=== PATIENT | female | born 2000 | race Caucasian/White ===

== ENCOUNTER 2021-03-04 20:25 | Emergency (ER) | payer OTHER ==
[2021-03-04 20:40] VITALS: TEMP 98.9; BMI 23.1
[2021-03-04] MEDS ORDERED: MECLIZINE HCL 25 MG TABLET (FP) PO ONE (22:32)
[2021-03-04] MEDS ORDERED: ONDANSETRON 4 MG/2 ML VIAL IVPUSH ONE (22:32)
[2021-03-04] MEDS ORDERED: SODIUM CHLORIDE 0.9% 500 ML INFUS.BAG IV ONE (22:32)
[2021-03-04] MEDS ORDERED: MECLIZINE HCL 25 MG TABLET (FP) ONE (22:37)
[2021-03-04] MEDS ORDERED: ONDANSETRON 4 MG/2 ML VIAL ONE (22:38)
[2021-03-04 22:58] LABS: BASO % 0.8 % (0-2.0); EOS % 1.3 % (0-4.5); HEMATOCRIT 41.9 % (32.4-45.2); HEMOGLOBIN 14.6 GM/dL (10.7-15.3); MCH 29.3 pg (25.7-33.7); MCHC 34.8 g/dl (32.0-36.0); MEAN CELL VOLUME 84.2 fl (80-96); MEAN PLT VOLUME 8.2 fl (7.5-11.1); MONO % 5.3 % (3.8-10.2); NEUT % 66.6 % (42.8-82.8); PLATELET COUNT 284 K/MM3 (134-434); RBC 4.98 M/mm3 (3.60-5.2); RDW 12.3 % (11.6-15.6); WHITE BLOOD COUNT 7.7 K/mm3 (4.0-10.0)
[2021-03-04 23:24] LABS: ALBUMIN 4.7 g/dl (3.4-5.0); BLOOD UREA NITROGEN 10.1 mg/dL (7-18); CALCIUM 9.2 mg/dL (8.5-10.1)
[2021-03-04 23:27] LABS: CREATININE 0.8 mg/dL (0.55-1.3)
[2021-03-04 23:29] LABS: BILIRUBIN,TOTAL 0.5 mg/dL (0.2-1)
[2021-03-04 23:47] LABS: EPI CELLS 23 /uL (0-25.1); HCG,QUALITATIVE URINE Negative; HYALINE CASTS 2 /uL (0-3.1); URINE APPEARANCE TURBID; URINE BACTERIA 867 /uL (0-1359); URINE BILIRUBIN NEGATIVE (NEGATIVE); URINE COLOR YELLOW; URINE GLUCOSE (UA) NEGATIVE (NEGATIVE); URINE KETONE TRACE (NEGATIVE); URINE LEUK ESTERASE TRACE (NEGATIVE); URINE NITRITE NEGATIVE (NEGATIVE); URINE PROTEIN NEGATIVE (NEGATIVE); URINE WBC 28 /uL (0-25.8)
[2021-03-05 00:20] VITALS: BP 115/70; PULSE 94
== END 2021-03-05 00:20 | disposition home or self-care (01) ==
LOC: JER 20:25
PROC: 3E033GC Introduction of Other Therapeutic Substance into Peripheral Vein, Percutaneous Approach (ICD-10-PCS; principal; 2021-03-04)
DX: R42 Dizziness and giddiness (principal)
CPT/HCPCS: 36415; 80053; 81003; 84443; 84703; 85025; 99284-25